=== PATIENT | female | born 1990 | race Caucasian/White ===

== ENCOUNTER 2017-02-03 22:40 | Inpatient (IN) | payer OTHER ==
[~2017-02-03] VITALS: Ht 157.5 cm; Wt 75.7 kg
--- NOTE | 2017-02-03 22:10 | NUR ---
RECEIVED PT FROM [facility] CITIZEN [place] SPE[employer] AAOX4 AMBULATORY HEART BEAT 150XMINTS DENIES ANY PAIN OR N/V AT THIS TIME IV ON LEFT HAND PATENT GAUGE # 20 RELATIVES AT BED SIDE ,CALL LIGHT WITHIN REACH INITIAL ASSESSMENT DONE
[2017-02-03 22:50] VITALS: BP 97/58
--- NOTE | 2017-02-04 | NUR ---
HEART BEAT 150 XMIT PT REMAIN STABLE NOT N/V DENIES ANY ABD PAIN
--- NOTE | 2017-02-04 00:25 | NUR ---
DR ROACH GIVE ORDERS TO FOLLOW; PT REMAIN STABLE GETTING SLEEP DENIES ANY PAIN OR DISCOMFORT
[2017-02-04] MEDS: LACTATED RINGERS 1,000 ML IV SCH ×3 (00:44→23:08)
--- NOTE | 2017-02-04 02:51 | NUR ---
PT SLEEPING IV ON LEFT HAND INFUSING WELL NOT PAIN NOT N/V REMAINSTBLE AT THIS TIME
--- NOTE | 2017-02-04 04:00 | NUR ---
SPONGE BATH GIVEN LINEN CHANGED NOT DISTRESS NOTED FROM CAME AND WITH THE DOPPLER US HEART BEAT 145XMINTS
[2017-02-04 06:17] LABS: BASOPHILS % (AUTO) 0.4 % (0.0-2.0); EOSINOPHILS # (AUTO) 0.3 K/uL (0-0.4); EOSINOPHILS % (AUTO) 3.2 % (0.0-4.0); HEMOGLOBIN 11.1 g/dL (12.0-16.0); LYMPHOCYTES # (AUTO) 1.5 K/uL (2.5-16.5); LYMPHOCYTES % (AUTO) 16.8 % (20.5-51.1); MEAN CORPUSCULAR HEMOGLOBIN 31 pg (27-31); MEAN CORPUSCULAR HGB CONC 33 g/dL (33-37); MEAN CORPUSCULAR VOLUME 96 fL (80-94); MONOCYTES # (AUTO) 0.7 K/uL (0.8-1.0); MONOCYTES % (AUTO) 7.2 % (1.7-9.3); NEUTROPHILS # (AUTO) 6.6 K/uL (1.8-7.7); NEUTROPHILS % (AUTO) 72.4 % (42.2-75.2); PLATELET COUNT (AUTO) 199 K/uL (140-450); RED BLOOD CELL COUNT(AUTO) 3.55 MIL/uL (4.20-5.40); RED CELL DISTRIBUTION WIDTH 12.3 % (11.6-13.7); WHITE BLOOD COUNT (AUTO) 9.1 K/uL (4.8-10.8)
[2017-02-04 06:34] LABS: AMYLASE 84 U/L (25-115); LIPASE 210 U/L (73-393)
[2017-02-04 06:37] LABS: ANION GAP 10.6 (8-16); CALCIUM 7.6 mg/dL (8.5-10.1); CARBON DIOXIDE 24.8 mmol/L (21-32); CREATININE 0.5 mg/dL (0.6-1.3); POTASSIUM 3.4 mmol/L (3.5-5.1)
--- NOTE | 2017-02-04 06:48 | NUR ---
PT AAOX4 RESTING ON BED NOT DISTRESS NOTED AT THIS TIME
--- NOTE | 2017-02-04 07:20 | NUR ---
RECEIVED PT FROM THE DIRECTOR OF EDUCATION AND TRAINING NURSE AT BEDSIDE FOR CONTINUITY OF CARE. PT IS AWAKE AND ORIENTED. PT IS A 26Y/O FEMALE, . SHE IS HERE D/T HAVING EPIGASTRIC PAIN EVERY TIME SHE EATS. NO PAIN AT THIS TIME. PT HAS AN IV ON HER L HAND 20G NS AT 100ML/HR. PT'S SKIN IS IN TACT. DR. ONTIVEROS WAS HERE AT 0700. HE ORDERED SOME MEDS AND INCREASED HER DIET TO CLEAR LIQ. WE WILL SEE IF SHE TOLERATES FOOD TODAY. UPDATED THE BOARD. CALL LIGHT WITHIN REACH. WILL CONTINUE TO MONITOR PT.
[2017-02-04 08:00] VITALS: BP 94/53
[2017-02-04] MEDS ORDERED: MORPHINE SULFATE 2 MG/ML SYR IVP PRN (08:10)
[2017-02-04] MEDS ORDERED: ONDANSETRON 4 MG/2 ML VIAL IVP PRN (08:10)
--- NOTE | 2017-02-04 08:15 | NUR ---
PT V/S WITHIN NORMAL RANGE. NO SIGNS OF DISTRESS. SLEEPING. WILL CONTINUE TO MONITOR.
--- NOTE | 2017-02-04 09:09 | NUR ---
PATIENT HAS BEEN SCREENED AND CATEGORIZED MODERATE NUTRITION RISK. PATIENT WILL BE SEEN WITHIN 3-5 DAYS OF ADMISSION. 02/06/17-02/08/[address]
--- NOTE | 2017-02-04 10:00 | NUR ---
PT RESTING. NO COMPLAINTS AT HIS TIME. ORDERED A LATE BREAKFAST TRAY. DR. ONTIVEROS UPGRADED HER DIET.
--- NOTE | 2017-02-04 11:02 | NUR ---
PT IS DOING WELL. RELAXING ON THE PHONE CHATTING WITH FAMILY. NO SIGNS OF DISTRESS. NO PAIN. ATE SOME BREAKFAST, JELLO AND JUICE. TOLERATED WELL. WILL CONTINUE TO MONITOR PT.
--- NOTE | 2017-02-04 13:10 | NUR ---
PT IS RESTING COMFORTABLY. NO SIGNS OF DISTRESS. NO COMPLAINTS. TALKING ON THE PHONE. NO PAIN AT THIS TIME. WILL CONTINUE TO MONITOR PT.
--- NOTE | 2017-02-04 14:46 | NUR ---
CM NOTE INITIAL REVIEW SENT TO [facility] FAX# [phone] PH# GLORIA [phone]
--- NOTE | 2017-02-04 15:10 | NUR ---
PT WAS IN THE BATHROOM. ASKED HER IF SHE WAS OK, PT STATES YES. NO COMPLAINTS AT THIS TIME. SAW THAT SHE ATE MOST OF HER TRAY. TOLERATING WELL. WILL CONTINUE TO MONITOR PT.
[2017-02-04 16:00] VITALS: BP 107/66
--- NOTE | 2017-02-04 17:33 | NUR ---
HEART TONE CHECKED BY CARLA FROM L&D (146 BEATS/MIN).
--- NOTE | 2017-02-04 18:45 | NUR ---
PT IS RESTING COMFORTABLY. ATE MOST OF HER TRAY. VISITING WITH FAMILY AT BEDSIDE. PT IS WONDERING IF SHE WOULD BE GOING HOME TODAY OR TOMORROW. I TOLD HER THAT I DIDN'T HAVE A D/C ORDER FOR HER OF YET. POSSIBLY TOMORROW. NO OTHER COMPLAINTS. WILL CONTINUE TO MONITOR PT.
--- NOTE | 2017-02-04 19:10 | NUR ---
ENDORSED PT TO THE ALTERATION WORKER NURSE AT BEDSIDE FOR CONTINUITY OF CARE. PT IS STABLE. RESTING COMFORTABLY.
--- NOTE | 2017-02-04 19:22 | NUR ---
RECEIVED REPORT FROM QIAN PURCELL FOR CONTINUITY OF CARE. PATIENT IS A&OX4, DISCUSSED PLAN OF CARE WITH PATIENT, VERBALIZED UNDERSTANDING. SHIFT ASSESSMENT DONE, VS TAKEN, IN STABLE CONDITION. NO S/S OF RESPIRATORY DISTRESS NOTED ON ROOM AIR. PATIENT DENIES PAIN. SKIN IS INTACT. IV TO LT AC 20 GAUGE PATENT AND INFUSING FLUIDS WELL. PATIENT IS 24 WEEKS , WILL FOLLOW UP WITH L&D FOR HEART TONES DURING SHIFT. CALL LIGHT PLACED WITHIN REACH AND PATIENT ENCOURAGED TO USE. PROVIDED PATIENT WITH JUICE PER CLEAR LIQUID DIET, DENIES NAUSEA. WILL CONTINUE TO MONITOR.
[2017-02-04 20:00] VITALS: BP 111/60
--- NOTE | 2017-02-04 22:00 | NUR ---
CHECKED IN ON PATIENT, SHE IS AWAKE ON THE PHONE. NO S/S OF DISTRESS OR DISCOMFORT NOTED. WILL CONTINUE TO MONITOR.
--- NOTE | 2017-02-04 23:56 | NUR ---
VS TAKEN, STABLE. ALL NEEDS MET AT THIS TIME. CALL LIGHT WITHIN REACH.
[2017-02-05] VITALS: BP 94/55
--- NOTE | 2017-02-05 02:14 | NUR ---
PT IS SLEEPING. NO S/S OF DISTRESS OR DISCOMFORT NOTED. WILL CONTINUE TO MONITOR.
--- NOTE | 2017-02-05 03:56 | NUR ---
PT IS SLEEPING. NO S/S OF DISTRESS OR DISCOMFORT NOTED. CALL LIGHT IN REACH.
--- NOTE | 2017-02-05 05:03 | NUR ---
SPOKE TO KIRSTIN FROM L&D, WILL BE OVER TO TELE TO CHECK HEART TONES.
--- NOTE | 2017-02-05 05:13 | NUR ---
HEART RATE 141 PER L&D NURSE JEANNIE.
[2017-02-05] MEDS: LACTATED RINGERS 1,000 ML IV SCH (06:06)
--- NOTE | 2017-02-05 06:30 | NUR ---
DR. ONTIVEROS IN TO SEE PATIENT.
--- NOTE | 2017-02-05 07:14 | NUR ---
ASSUMED CONTINUITY OF CARE. NO SIGNS AND SYMPTOMS OF ACUTE DISTRESS NOTED. INITIAL ASSESSMENT DONE. KEEP COMFORTABLE ON BED. EXPLAINED DIAGNOSIS, PLAN OF CARE, PAIN MANAGEMENT TEACHING, USE OF CALL LIGHT/BED/TV/BATHROOM. VERBALIZED UNDERSTANDING. CALL LIGHT WITHIN REACH.
--- NOTE | 2017-02-05 07:14 | NUR ---
ENDORSED PATIENT TO DAY FORESTRY CONSULTANT FOR CONTINUITY OF CARE. PATIENT IS IN STABLE CONDITION.
--- NOTE | 2017-02-05 07:30 | NUR ---
Patient's Plan of Care was discussed and reviewed with JOHN: HALLIE.
[2017-02-05 08:00] VITALS: BP 87/61
--- NOTE | 2017-02-05 08:15 | NUR ---
CALLED SYDNI COTTO, BUT NOT ANSWERING PHONE CALLS. INFORMED CHARGE NURSE LISBET BALTAZAR -BINH.
--- NOTE | 2017-02-05 08:17 | NUR ---
CALLED Elvia KANG, INFORMED OF PT. BP 87/61 AT 0800, AND SYDNI COTTO FOR CONSULT WAS CALLED AT 0815 BUT WAS NOT ANSWERING PHONE CALLS.
--- NOTE | 2017-02-05 09:09 | NUR ---
CALLED Elvia KANG AT AND INFORMED THAT SYDNI COTTO WAS NOT AVAILABLE TILL FEBRUARY 11, 2017 FOR CONSULT AND JOY GARCIA WAS NOT COVERING SYDNI COTTO. Elvia KANG ORDERED TO CALL ANY AVAILABLE [facility] FOR PT. CONSULT, READ BACK AND VERIFIED. INFORMED CHARGE NURSE LISBET ELLSWORTH.
--- NOTE | 2017-02-05 09:13 | NUR ---
CALLED [facility] AT AND SPOKE TO JOHN, INFORMED OF Elvia KANG ORDER OF PT. CONSULT. LEFT CALL BACK NUMBER.
[2017-02-05 09:20] VITALS: BP 91/54
--- NOTE | 2017-02-05 09:33 | NUR ---
CRIS MONTEIRO CAME, INFORMED OF PT. CONSULT PER RUMA KANG. CRIS MONTEIRO CHECKED PT. CHART, AND SEEN PT..
--- NOTE | 2017-02-05 10:55 | NUR ---
CALLED L & D AND ASKED ASSISTANCE FOR HEART TONE MONITORING Q SHIFT. CARLIN PURCELL FROM L & [facility] CAME AND CHECKED PT. HEART TONE. PER CARLIN ELLSWORTH (L&D) HEART TONE WAS 150. INFORMED CHARGE NURSE LISBET ELLSWORTH.
[2017-02-05 11:29] VITALS: BP 95/59
--- NOTE | 2017-02-05 11:30 | NUR ---
EXPLAINED MD D/C ORDER, D/C INSTRUCTIONS AND TEACHING, MD FOLLOW-UP, PAIN MANAGEMENT TEACHING, DISEASE MANAGEMENT, NO FAT DIET, EDUCATION. VERBALIZED UNDERSTANDING.
--- NOTE | 2017-02-05 11:45 | NUR ---
GAGAN ANTON GAVE A VERBAL CLINICAL UPDATE TO GAGAN CASTRO OF [facility] WHO MADE AN ONSITE VISIT AT 10AM TODAY AND INFORMED HER OF THE PLAN TO DISCHARGE PATIENT TODAY. SENT DISCHARGE SUMMARY TO [facility] FAX# [phone] PH# GLORIA [phone].
--- NOTE | 2017-02-05 12:25 | NUR ---
D/C HOME VIA WHEELCHAIR ACCOMPANIED BY PT. SISTER -GRIFFIN. AWAKE, ALERT, AND ORIENTED X4. SPEECH CLEAR. NO C/O PAIN. NO SOB, NOTED. IN STABLE CONDITION. REMINDED AGAIN OF PCP FOLLOW UP. VERBALIZED UNDERSTANDING. INFORMED CHARGE NURSE LISBET ELLSWORTH.
== END 2017-02-05 12:25 | disposition home or self-care (01) | DRG 566 ==
LOC: MTU 22:40
PROVIDERS: ADMIT Obstetrics & Gynecology; ATTEND Obstetrics & Gynecology
DX: O99.612 Diseases of the digestive system complicating pregnancy, second trimester (principal); K85.10 Biliary acute pancreatitis without necrosis or infection; Z3A.26 26 weeks gestation of pregnancy
CPT/HCPCS: 36415; 80048; 82150; 83690; 85025; 87081; J7120